=== PATIENT | female | born 1965 | race Caucasian/White ===

== ENCOUNTER 2019-06-01 10:35 | Observation (INO) | payer OTHER ==
[~2019-06-01] VITALS: Ht 154.9 cm; Wt 100.2 kg
[2019-06-01 10:40] VITALS: BP 168/93
[2019-06-01] MEDS ORDERED: ZOLOFT 50 MG TA50 MG PO (10:52)
[2019-06-01] MEDS ORDERED: SERTRALINE HCL100 MG PO (10:52)
[2019-06-01] MEDS ORDERED: ZANTAC 150MG T150 M1 PO (10:53)
[2019-06-01] MEDS ORDERED: LYRICA150 MG PO (10:53)
[2019-06-01] MEDS ORDERED: SYNTHROID125 MC1 PO (10:53)
[2019-06-01] MEDS ORDERED: ROPINIROLE HCL2 MG PO (10:54)
[2019-06-01] MEDS ORDERED: GLUCOTROL5 MG PO (10:54)
[2019-06-01] MEDS ORDERED: LOVASTATIN 20 M20 MG PO (10:54)
[2019-06-01] MEDS ORDERED: METFORMIN HCL500 M3 PO (10:55)
[2019-06-01] MEDS ORDERED: MYSOLINE50 MG PO (10:55)
[2019-06-01] MEDS ORDERED: OMEPRAZOLE40 MG PO (10:55)
[2019-06-01] MEDS ORDERED: PROPRANOLOL 20M20 MG PO (10:55)
[2019-06-01 11:12] LABS: ABSOLUTE EOSINOPHILS 0.2 thou/uL (0.0-0.7); ABSOLUTE LYMPHOCYTES 2.2 thou/uL (0.8-5.3); ABSOLUTE MONOCYTES 0.5 thou/uL (0.0-1.2); BASOPHILS 0.8 %; EOSINOPHILS 3.8 %; HEMATOCRIT 36.5 % (37.0-47.0); LYMPHOCYTES 37.3 %; MCH 27.3 pg (26.0-34.0); MCHC 32.8 g/dL (28.0-37.0); MCV 83.1 fL (80.0-100.0); MONOCYTES 7.8 %; MPV 8.8 fl. (7.2-11.1); NUCLEATED RBCS 0 /100WBC; PLATELET COUNT* 210 thou/uL (150-400); POLYS 50.3 %; RBC 4.39 mil/uL (4.20-5.00); RDW-CV 16.2 % (10.5-14.5); WBC 5.9 thou/uL (4.0-11.0)
[2019-06-01 11:22] LABS: APTT 31.3 Seconds (25.0-31.3); INR 1.1; PROTIME 10.9 Seconds (9.20-11.50)
[2019-06-01 11:23] LABS: ANION GAP 7 mmol/L (7-16); BUN 12 mg/dL (7-18); CALCIUM 9.3 mg/dL (8.5-10.1); CHLORIDE 103 mmol/L (98-107); CO2 27 mmol/L (21-32); CREATININE 0.9 mg/dL (0.6-1.3); GLUCOSE 166 mg/dL (70-99); POTASSIUM 4.2 mmol/L (3.5-5.1); SODIUM 137 mmol/L (136-145)
[2019-06-01 11:36] LABS: ALBUMIN 3.4 g/dL (3.4-5.0); ALKALINE PHOSPHATASE 130 U/L (46-116); CK-MB MASS < 0.5 ng/mL (<0.5-3.6); NT-PRO BRAIN NAT PEPTIDE 20 pg/mL (<300); SGOT 25 U/L (15-37); SGPT 57 U/L (30-65); TOTAL BILIRUBIN 0.3 mg/dL (<0.1-1.0); TOTAL PROTEIN 7.9 g/dL (6.4-8.2)
[2019-06-01 11:44] LABS: URINE BILIRUBIN NEGATIVE (Negative); URINE BLOOD NEGATIVE (Negative); URINE CLARITY CLEAR; URINE COLOR YELLOW; URINE GLUCOSE-RANDOM NEGATIVE (Negative); URINE KETONES NEGATIVE (Negative); URINE LEUKOCYTES-REFLEX NEGATIVE (Negative); URINE NITRITE-REFLEX NEGATIVE (Negative); URINE PROTEIN NEGATIVE (Negative); URINE SPECIFIC GRAVITY 1.025 (1.005-1.030); URINE UROBILINOGEN 0.2 E.U./dl (0.2-1.0)
--- NOTE | 2019-06-01 11:59 | NUR ---
PT'S SISTER, MARBELLA, CALLED TO ASK ABOUT THE PATIENT'S STATUS. AFTER RECEIVING CONSENT FROM THE PATIENT TO TELL MARBELLA ABOUT HER STATUS AND PLAN OF CARE, MARBELLA WAS TOLD THAT THE PATIENT WILL BE ADMITTED INTO THE HOSPITAL. MARBELLA STATES SHE WILL BE UP TO THE HOSPITAL LATER IN THE DAY. PT TOLD THIS INFORMATION.
[2019-06-01 14:30] VITALS: BP 159/95
[2019-06-01 15:00] VITALS: BP 144/85
[2019-06-01 17:02] LABS: CALCIUM 8.9 mg/dL (8.5-10.1); CREATININE 0.9 mg/dL (0.6-1.3); MAGNESIUM 1.6 mg/dL (1.8-2.4); POTASSIUM 4.1 mmol/L (3.5-5.1)
--- NOTE | 2019-06-01 18:57 | NUR ---
PT ARRIVED FROM THE ER AROUND 1500. ASSESSMENT COMPLETED CHARTED. ABLE TO MAKE NEEDS KNOWN. ON BEDREST WITH BATHROOM PRIVILAGES. MEDS RESTARTED. PAPERWORK SIGNED AND ORDERS CLARIFIED. WILL CONTINUE TO MONITOR.
[2019-06-01 22:17] VITALS: BP 126/75
[2019-06-01 23:43] VITALS: BP 154/64
[2019-06-02 04:00] VITALS: BP 124/66
--- NOTE | 2019-06-02 04:36 | NUR ---
ASSUMED CARE OF PT 06/01/19 APPROX 1930. PT REMAINED A&OX4 THROUGHOUT SHIFT, PT ON O2 1L NC, FALL PRECAUTIONS IN PLACE, ASSESSMENTS AND HOURLY ROUNDINGS COMPLETED, PT DENIES ANY PAIN. WILL CONTINUE TO MONITOR.
[2019-06-02 05:50] LABS: HEMATOCRIT 34.9 % (37.0-47.0); HEMOGLOBIN 11.4 gm/dL (12.0-15.0); MCHC 32.6 g/dL (28.0-37.0); MPV 8.2 fl. (7.2-11.1); RBC 4.2 mil/uL (4.20-5.00); RDW-CV 16.1 % (10.5-14.5); WBC 5.8 thou/uL (4.0-11.0)
[2019-06-02 06:03] LABS: CALCIUM 8.6 mg/dL (8.5-10.1); CREATININE 0.7 mg/dL (0.6-1.3); POTASSIUM 4.2 mmol/L (3.5-5.1)
[2019-06-02 08:29] VITALS: BP 129/76
--- NOTE | 2019-06-02 08:30 | NUR ---
ASSUMED CARE AFTER REPORT APPROX 07. A&OX4, ABLE TO EXPRESS NEEDS. 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 O2 SATS 96% RA. CALL LIGHT IN REACH. HOURLY ROUNDING FOR SAFETY.
[2019-06-02] MEDS ORDERED: REGLAN 10 MG TA10 MG PO (12:14)
[2019-06-02 12:45] VITALS: BP 108/64
[2019-06-02 13:25] LABS: AMP/METHAMP Negative (Negative); BARBITURATES Negative (Negative); BENZODIAZEPINES Negative (Negative); COCAINE Negative (Negative); METHADONE Negative (Negative); OPIATES Negative (Negative); PCP Negative (Negative); THC Negative (Negative)
[2019-06-02 14:13] VITALS: BP 108/64
--- NOTE | 2019-06-02 14:45 | NUR ---
PATIENT WITH COMPLETE DC ORDER. REVIEWED DC INSTRUCTIONS AND MED LIST WITH PATIENT. ANSWERED QUESTIONS TO HER SATISFACTION. IV DC'D AND HOT KETTLE TENDER REMOVED, CLEANED AND RETURNED TO POCKET FOR ROOM 205. PATIENT IN POSSESSION OF ALL BELONGINGS. PATIENT LEFT UNIT VIA WC AND WATERPROOFER HELPER TO FRONT ENTRANCE OF HOSPITAL. SISTER TO TRANSPORT TO HOME VIA CAR.
--- NOTE | 2019-06-03 11:01 | EKG ---
[place] [address] ELECTROCARDIOGRAM REPORT Name: ALAN CORREA Room: [address] [place] .R.#: [id number] Admission: 06/01/19 Attend Phys: Jessenia Aden Discharge: 06/02/19 Date of : 65 Report #: [id number] THIS REPORT FOR: //name// [facility] ED Test Date: 2019-06-01 Test Time: 10:47:01 Pat Name: ALAN CROREA Department: Room: [facility] Gender: F [employer] Service Supervisor: : 1965 Requested By: Vik Clark Order Number: [id number] MD: Sammy Burton Measurements Intervals [place] Rate: 72 P: 42 LA: 190 QRS: 11 QRSD: 145 T: 15 QT: 433 QTc: 474 Interpretive Statements Sinus rhythm Right bundle branch block No previous ECG available for comparison Electronically Signed On 06-03-2019 11:01:03 CDT by Sammy Burton [email or web address] <ELECTRONICALLY SIGNED> By: Sammy Burton MD, [facility] 06/03/19 110 46 46 Sammy Burton MD, FAC /EPI
== END 2019-06-02 15:00 | disposition home or self-care (01) ==
LOC: EDBD 10:35 → M.ERS 10:35 → M.2W 11:40 → M.TBA-ER 11:40 → M.2W 14:39
PROVIDERS: Family Medicine; ADMIT Family Medicine
DX: R53.1 Weakness (principal); R42 Dizziness and giddiness; R11.0 Nausea; K21.9 Gastro-esophageal reflux disease without esophagitis; E11.9 Type 2 diabetes mellitus without complications; F41.9 Anxiety disorder, unspecified; F32.9 Major depressive disorder, single episode, unspecified; E03.9 Hypothyroidism, unspecified; M79.7 Fibromyalgia; M06.9 Rheumatoid arthritis, unspecified; I10 Essential (primary) hypertension; F43.10 Post-traumatic stress disorder, unspecified; E78.5 Hyperlipidemia, unspecified; Z79.899 Other long term (current) drug therapy; Z87.891 Personal history of nicotine dependence

== ENCOUNTER 2020-03-08 13:02 | Emergency (ER) | payer OTHER, SELFPAY ==
[~2020-03-08] VITALS: Ht 154.9 cm; Wt 97.1 kg
[~2020-03-08 13:02] MED LIST: GLUCOTROL5 MG PO; LOVASTATIN 20 M20 MG PO; LYRICA150 MG PO; METFORMIN HCL500 M3 PO; MYSOLINE50 MG PO; OMEPRAZOLE40 MG PO; PROPRANOLOL 20M20 MG PO; REGLAN 10 MG TA10 MG PO; ROPINIROLE HCL2 MG PO; SERTRALINE HCL100 MG PO; SYNTHROID125 MC1 PO; ZANTAC 150MG T150 M1 PO; ZOLOFT 50 MG TA50 MG PO
[2020-03-08] MEDS ORDERED: NOVOLOG100 UNIT/M SUBQ (13:10)
[2020-03-08] MEDS ORDERED: NABUMETONE 750750 M1 PO (13:59)
[2020-03-08] MEDS ORDERED: NORCO 5-325 TA1 EAC2 PO (13:59)
[2020-03-08 14:22] VITALS: BP 145/79
== END 2020-03-08 14:22 | disposition home or self-care (01) ==
LOC: M.ERS 13:02
DX: M25.511 Pain in right shoulder (principal); E11.9 Type 2 diabetes mellitus without complications; M79.7 Fibromyalgia; K21.9 Gastro-esophageal reflux disease without esophagitis; E78.5 Hyperlipidemia, unspecified; E03.9 Hypothyroidism, unspecified; I10 Essential (primary) hypertension; G25.81 Restless legs syndrome; Z79.4 Long term (current) use of insulin